=== PATIENT | male | born 1955 | race Caucasian/White ===

== ENCOUNTER 2017-09-01 13:28 | Emergency (ER) | payer OTHER ==
[2017-09-01 13:47] VITALS: RESP 18; TEMP 98.2; O2SAT 95
[2017-09-01] MEDS ORDERED: TDAP ADULT 0.5 ML INJ (BOOSTRIX) IM ONE (14:09)
[2017-09-01] MEDS ORDERED: LET GEL TOPICAL 1 EA SYR TP ONE (14:14)
--- NOTE | 2017-09-01 14:20 | EDPHY ---
HPI/HX/ROS/PE/MDM Narrative: CHIEF COMPLAINT: Left hand injury HPI: The patient is a 62 y/o male arriving with his for evaluation of a laceration on his left hand he suffered today while working on a car. He says he caught his left 5th finger on a piece of tim metal causing sudden pain and bleeding at the base of his finger. He continued to bleed even while holding direct pressure, though is not actively bleeding here. He denies weakness or numbness in that finger. No other injuries. No anticoagulant use. REVIEW OF SYSTEMS: Aside from elements discussed in the HPI, a comprehensive 10-point review of systems was reviewed and is negative. PMH: Back pain SOCIAL HISTORY: ate bedside. Lives in [place]. Employed. PHYSICAL EXAM: General:Patient is alert, in no acute distress. Respiratory:No respiratory distress. Cardiovascular: Normal cap refill. Skin: Normal color. No rash. Warm and dry. Extremities: Left hand: 2cm at MCP line of 5th finger along volar aspect. Grease covering both hands. Otherwise normal appearance. Full range of motion. Neuro: Oriented x3. Normal motor function. Normal sensory function. ED Course: Procedure: Laceration repair. Verbal consent was obtained from the patient. The linear 2cm laceration on the volar aspect of left 5th finger at MCP was anesthetized using lidocaine. The wound was cleaned with standard ED protocol. There were no deep structures involved. The wound was repaired in single layer technique with 3 sutures of 4- 0 Proline. The wound repair was simple. The procedure was performed by myself, Dr. Tejeda. Tetanus vaccination administered. Return for suture removal in 10-14 days. - Data Points Medications Given: Discontinued Medications Diphtheria/Tetanus/Acell Pertussis (Boostrix) 0.5 ml IM .ONCE ONE Stop: 09/01/17 14:10 Last Admin: 09/01/17 14:21 Dose: 0.5 ml Tetracaine/Epinephrine/Lidocaine (Let Gel Topical) 1 ea TP EDNOW ONE Stop: 09/01/17 14:15 Last Admin: 09/01/17 14:23 Dose: Not Given General Time Seen by Provider: 09/01/17 14:03 Initial Vital Signs: Initial Vital Signs Temperature (C) 36.8 C 09/01/17 13:45 Heart Rate 77 09/01/17 13:45 Respiratory Rate 18 09/01/17 13:45 Blood Pressure 121/80 H 09/01/17 13:45 O2 Sat (%) 95 09/01/17 13:45 O2 Delivery Mode Room Air Allergies/Adverse Reactions: No Known Allergies Allergy (Verified 09/01/17 13:43) Home Medications: Medication Instructions Recorded NK [No Known Home Meds] 09/01/17 Departure - Departure Disposition: Home, Routine, Self-Care Clinical Impression: Finger laceration Qualifiers: Encounter type: initial encounter Finger: little finger Damage to nail status: without damage Foreign body presence: without foreign body Laterality: left Qualified Code(s): S61.217A - Laceration without foreign body of left little finger without damage to nail, initial encounter Condition: Good Instructions: Finger Laceration (ED) Additional Instructions: 1. Return for suture removal in 10-14 days. 2. Use Tylenol or ibuprofen as directed on the packaging if needed for pain over the next few days. 3. Keep the area clean and dry. Okay to wash gently with soap and water. 4. Follow up with Dr. Feng, hand surgeon, in the next 2-3 days. 5. Return to the ED for severe pain, if you develop weakness or numbness in your finger, redness or pus from wound, or other worsening of condition. Referrals: Geovani Feng MD [Medical Doctor] - As per Instructions Report Scribed for: Omid Tejeda Report Scribed by: Radha Lawrence Date of Report: 09/01/17 Time of Report: 14:20 Physician Review and Approval Statement: Portions of this note were transcribed by an ED scribe. I personally performed the history, physical exam, and medical decision making; and confirm the accuracy of the information in the transcribed note.
[2017-09-01 15:00] VITALS: BP 138/86; PULSE 68
== END 2017-09-01 14:59 | disposition home or self-care (01) ==
PROC: 0HQGXZZ Repair Left Hand Skin, External Approach (ICD-10-PCS; principal; 2017-09-01)
DX: S61.217A Laceration without foreign body of left little finger without damage to nail, initial encounter (principal); W45.8XXA Other foreign body or object entering through skin, initial encounter; Y92.810 Car as the place of occurrence of the external cause; Y99.0 Civilian activity done for income or pay; Y93.89 Activity, other specified; Z23 Encounter for immunization